=== PATIENT | female | born 1950 | race African-American/Black ===

== ENCOUNTER 2018-05-14 16:08 | Emergency (ER) | payer OTHER ==
[~2018-05-14] VITALS: Ht 160 cm; Wt 90.7 kg
[2018-05-14 16:30] VITALS: BP 111/65
[2018-05-14] MEDS ORDERED: NORFLEX100 MG PO (17:25)
[2018-05-14] MEDS ORDERED: NAPROSYN500 MG PO (17:25)
== END 2018-05-14 18:04 | disposition home or self-care (01) ==
LOC: ER 16:08
DX: M54.5 Low back pain (principal); G89.29 Other chronic pain; Z88.5 Allergy status to narcotic agent